=== PATIENT | male | born 1950 | race Caucasian/White ===

== ENCOUNTER 2016-09-15 12:11 | Day surgery (SDC) | payer OTHER ==
[~2016-09-15] VITALS: Ht 172.7 cm; Wt 117.9 kg
[~2016-09-15 12:11] MED LIST: ALLO300T2 PO; ASCO120G2 MC; ASCO500C6 PO; BUPR100T15 PO; GABA-502 PO; HYDR25TA4 PO; LISI40TA PO; Lactated Ringer's 1,000 ML IV ONE; METF500T4 PO; MTH10T PO; MULT-1018 PO; OXYC5TAB72 PO; TRAZ-118 PO
[2016-09-15] MEDS ORDERED: Propofol 10,000 mCg/mL 20 mL Inj ONE (12:12)
[2016-09-15 12:41] VITALS: BP 155/88; PULSE 94; RESP 14; O2SAT 94
[2016-09-15] MEDS ORDERED: Lactated Ringer's 1,000 ML IV SCH (13:21)
--- NOTE | 2016-09-15 13:24 | PCM.HPANE ---
Patient Data Date of Service: Sep 15, 2016 ([id number]) Surgeon Admitting Provider: Attending Provider:Taiwo Taylor MD Primary Care Physician:Wero Lerma MD Other Provider:Sumaya Torres Anesthesia Reason for Visit Blood In Stool Ht/WT & BMI Height (Feet): 5 Height (Inches): 8 Weight (Kilograms): 117.93 Body Mass Index 39.00 Allergies Coded Allergies: No Known Drug Allergies (Verified Allergy, Unknown, 09/13/16) Past Anesthesia History Anesthesia History: Denies:: Abnormal Airway, Anesthesia Reactions, Difficult Intubation, Fam Anesthesia Reaction, Fam Malignant Hypertherm, Malignant Hyperthermia Diabetes History Hx Diabetes?: Yes Glycemic Control: Oral Medication Current Bedside Blood Glucose: 129 MRSA MRSA: No Medications Home Meds Incl Beta Chance: No Reported Medications Trazodone 100 Mg [id number] Mg PO BID Ref 0 09/13/16 Multivitamin (Multi Vitamin Daily)1 Each Tablet1 Each PO DAILY 30 Days Ref 0 09/13/16 Methadone 10 Mg Tab10 Mg PO q8hr Ref 0 09/13/16 Metformin 500 Mg [id number] Mg PO BID Ref 0 09/13/16 Lisinopril 40 Mg [id number] Mg PO DAILY 30 Days Ref 0 09/13/16 Hydrochlorothiazide 25 Mg Qbjxbm18 Mg PO DAILY 30 Days Ref 0 09/13/16 Gabapentin 300 Mg [id number] Mg PO BID Ref 0 09/13/16 Bupropion 100 Mg Ypcojw322 Mg PO BID Ref 0 09/13/16 Ascorbic Acid (Vitamin C)500 Mg Capsule.er500 Mg PO DAILY 09/13/16 Allopurinol 300 Mg [id number] Mg PO DAILY Ref 0 09/13/16 Discontinued Reported Medications oxyCODONE 5 Mg Tablet5 Mg PO Q4H PRN For Pain Ref 0 09/13/16 Ascorbic Acid 100 Gm [id number] Gm MC 09/13/16 History HEENT History: Positive for:: Hearing Problem (MILD KNIK) Denies:: Abnormal Airway Difficult Intubation Dysphagia Denture Type: Full- Upper Full- Lower Hx of Heart Problems?: Yes Cardiovascular History: Positive for:: Hypertension Denies:: AICD Atrial Fibrillation Chest Pain Pacemaker Valvular Heart Disease Hx of Respiratory Problem?: No Neurological History: Denies:: CVA Hx of GI Problems?: Yes Gastrointestinal History: Positive for:: Rectal Bleeding (BRB) Denies:: Cirrhosis Diverticulitis Gall Bladder Disease Gastroesphageal Reflux Hiatal Hernia Liver Disease Musculoskeletal History: Positive for:: Joint Replacement (R KNEE) Denies:: Fibromyalgia Psycho Social History: Positive for:: Anxiety Hx Depression Hx Surgeries?: Yes (R TKA, TONSIL, L ARM FRAC, PELVIC FRAC, LUMBAR LAMI, APPY) Hx Any Other Health Problems?: Yes Hx Diabetes: YesBedside Blood Glucose: 129 Hx Alcohol Use: Yes Stop/Bang Treated for Sleep Apnea?: Yes Do You Have a CPAP Machine?: Yes (NON-COMPLIANT WITH USE) S-Snoring: Do You Snore Loudly: Yes O-Obsered: Observed not breath: Yes P-Blood Pressure: treated: Yes B- Body Mass Index > 35 kg/m2: Yes A- Age over 50: Yes N- Neck Large Circumference: Yes G- Gender Male: Yes CARLEY Risk Assessment: High Risk, =/>3 Yes Risk Assessment Category Category 1A: Patient has history of documented sleep apnea, and HAS NOT received any narcotic, sedative or anesthesia administration during this stay. Category 1B: Patient has history of documented sleep apnea, and HAS received any narcotic , sedative or anesthesia administration during this stay Category 2: Patient has SUSPECTED Obstructive Sleep Apnea, and HAS received any narcotic , sedative or anesthesia administration during this stay. Category 3: Patient has SUSPECTED Obstructive Sleep Apnea and HAS NOT received narcotic, sedative or anesthesia administration during this stay. Category 4: Outpatient in Procedural Areas with known sleep apnea or who screen positive for High Risk via the STOP/BANG questionnaire. Exam Exam Vital Signs Vital Signs Date Time Temp Pulse Resp B/P Pulse Ox O2 Delivery O2 Flow Rate FiO2 09/15/16 12:41 37.0 94 14 155/88 94 Room Air General Appearance: Alert, Oriented X3 HEENT/AIRWAY: MP 2 Lungs: Clear to Auscultation Heart: Exam Unremarkable Meds/Labs/Diagnostics Bedside Blood Glucose: 129 Plan Impression Patient chart reviewed, patient interviewed and anesthestic plan with risks, benefits, and alternatives discussed, and informed consent obtained. NPO Status: >8HRS ASA Physical Status: ASA2 Mod Systemic Disease Anesthetic Plan: GA Bene/Risks/Altern/Consents: Yes HP Complete Prior to Induction: Yes Devang Madrigal MD Sep 15, 2016 13:24
[2016-09-15] MEDS ORDERED: Ondansetron 2 mg/mL 2 mL Inj IVPUSH PRN (13:25)
[2016-09-15] MEDS ORDERED: MetoCLOpramide 5 mg/mL 2 mL Inj IVPUSH PRN (13:25)
--- NOTE | 2016-09-15 13:54 | PCM.ENDCOL ---
Colonoscopy Date of Service: Sep 15, 2016 Physician Taiwo Taylor MD Pre Procedure Diagnosis: Family history of colon cancer Post Procedure Dx & Findings: Hemorrhoids Procedure Colonoscopy PROCEDURE IN DETAIL: Prep adequate Withdrawal time of minutes After unremarkable rectal examination the Olympus video colonoscope was inserted patient's anal canal and was advanced to cecum. Landmarks were identified including the ileocecal valve and appendiceal orifice. Scope was withdrawn systematically. Visualized colonic mucosa showed healthy shiny mucosa with normal healthy-appearing vasculature. In the rectum retroflexion was done which showed hemorrhoids. Anal canal was inspected carefully on the way out and hemorrhoids noted. Impression Family history of colon cancer Hemorrhoids Recommendation Repeat colonoscopy in 5 years Presedation Assessment Risks and Benefits Informed consent was obtained from the patient after all risks and benefits including but not limited to drug reaction, infection, pain, bleeding, perforation, as well as alternatives were discussed. Patient monitoring Continuous pulse oximetry, cardiac monitoring, blood pressure monitoring, IV access, and oxygen at 2L per nasal cannula. Complications There were no periprocedural complications identified. Post Procedure Plan Post Procedure Recommendations 1. Restrict activities today. 2. Resume normal activities in the morning. 3. Resume medications. 4. Patient informed of normal post procedure side effects as bloating, drowsiness, blood streaking in the stool. 5. average risk CRCS. If colon polyps come back as: -Hyperplastic- can repeat colonoscopy in 10 years -Tubular adenoma- repeat colonoscopy in 5 years -Tubulovillous/villous adenoma- repeat colonoscopy in 3 years -If any dysplasia- return to clinic as soon as possible 6. Please don't hesitate to call me with any questions. Taiwo Taylor MD Sep 15, 2016 13:54
[2016-09-15 13:56] VITALS: BP 112/69; PULSE 78; RESP 14; O2SAT 93
--- NOTE | 2016-09-15 13:57 | PCM.ANEP2 ---
Post Anesthesia Evaluation ASA/CMS Post Anesthesia VS in Patient's Normal Range?: Yes Resp Stable; Airway Patent?: Yes CV Function & Hydration Stable: Yes Mental Status Recovered?: Yes Pain control Satisfactory?: Yes N/V Control Satisfactory?: Yes Devang Madrigal MD Sep 15, 2016 13:57
--- NOTE | 2016-09-15 13:57 | PCM.ANEP1 ---
Post Anesthesia Phase 1 PACU Phase 1 Assessment Date of Service: Sep 15, 2016 Vital Signs 112/69, 93%, 16, 79, 36.5 Vital Signs Date Time Temp Pulse Resp B/P Pulse Ox O2 Delivery O2 Flow Rate FiO2 09/15/16 12:41 37.0 94 14 155/88 94 Room Air Anesthetic Administered: GA Level of Alertness: Awake, talking VICTOR's with Equal Strength: Yes Pain: No Nausea or Vomiting: No Oxygen Delivery: Room Air Lungs: Clear to Auscultation Dermatome Level: Full Sensation Summary EASY SEDATION Devang Madrigal MD Sep 15, 2016 13:57
[2016-09-15 14:07] VITALS: BP 122/74; PULSE 84; RESP 15; O2SAT 97
[2016-09-15 14:17] VITALS: BP 134/79; PULSE 83; RESP 16; O2SAT 95
== END 2016-09-15 23:59 | disposition home or self-care (01) ==
LOC: END 12:11
PROVIDERS: ATTEND Internal Medicine
DX: Z12.11 Encounter for screening for malignant neoplasm of colon (principal); K64.8 Other hemorrhoids; Z86.010 Personal history of colon polyps; Z80.0 Family history of malignant neoplasm of digestive organs; I10 Essential (primary) hypertension; E11.9 Type 2 diabetes mellitus without complications; F41.8 Other specified anxiety disorders; Z79.84 Long term (current) use of oral hypoglycemic drugs